=== PATIENT | female | born 1970 | race Caucasian/White ===

== ENCOUNTER 2020-11-08 06:08 | Day surgery (SDC) | payer BC, OTHER ==
[2020-11-08 06:43] VITALS: BMI 23.3
[2020-11-08] MEDS ORDERED: BUPIVACAINE HCL/PF 0.25% (2.5MG/ML) 10 ML VIAL ONE (07:13)
[2020-11-08] MEDS ORDERED: EPINEPHrine 1:1,000 1 MG/1 ML - 30ML VIAL (INJECTION) ONE (07:14)
[2020-11-08] MEDS ORDERED: MIDAZOLAM HCL 2 MG/2 ML SINGLE DOSE VIAL ONE (07:14)
[2020-11-08] MEDS ORDERED: PROPOFOL 20 ML ONE ×2 (07:25)
[2020-11-08] MEDS ORDERED: SUCCINYLCHOLINE CHLORIDE 200 MG/10 ML SYRINGE ONE (07:48)
[2020-11-08] MEDS ORDERED: BUPIVACAINE HCL/PF 0.25% (2.5MG/ML) 10 ML VIAL IJ ONE (08:38)
[2020-11-08] MEDS ORDERED: oxyCODONE HCL 5 MG TABLET PO PRN (08:53)
[2020-11-08 09:51] VITALS: TEMP 97.3
[2020-11-08 10:59] VITALS: BP 100/60; PULSE 64
== END 2020-11-08 11:00 | disposition home or self-care (01) ==
LOC: FASU 06:08
PROVIDERS: ATTEND Orthopaedic Surgery Sports Medicine
PROC: 0SBD4ZZ Excision of Left Knee Joint, Percutaneous Endoscopic Approach (ICD-10-PCS; 2020-11-08)
PROC: 0SBD4ZZ Excision of Left Knee Joint, Percutaneous Endoscopic Approach (ICD-10-PCS; principal; 2020-11-08 08:03)
DX: S83.242A Other tear of medial meniscus, current injury, left knee, initial encounter (principal); X58.XXXA Exposure to other specified factors, initial encounter; Y93.9 Activity, unspecified; Y92.9 Unspecified place or not applicable; Y99.9 Unspecified external cause status; M65.9 Synovitis and tenosynovitis, unspecified
CPT/HCPCS: 94760